=== PATIENT | female | born 1975 | race African-American/Black ===

== ENCOUNTER 2018-07-05 13:46 | Emergency (ER) | payer OTHER ==
[~2018-07-05] VITALS: Ht 175.3 cm; Wt 74.8 kg
[2018-07-05 14:19] LABS: ABSOLUTE EOSINOPHILS 0.1 thou/uL (0.0-0.7); ABSOLUTE LYMPHOCYTES 2.1 thou/uL (0.8-5.3); ABSOLUTE MONOCYTES 0.4 thou/uL (0.0-1.2); ABSOLUTE NEUTROPHILS 2.3 thou/uL (1.6-8.1); BASOPHILS 0.6 %; HEMATOCRIT 37.1 % (37.0-47.0); HEMOGLOBIN 12.2 gm/dL (12.0-15.0); LYMPHOCYTES 41.4 %; MCH 26.5 pg (26.0-34.0); MCHC 32.9 g/dL (28.0-37.0); MCV 80.6 fL (80.0-100.0); MONOCYTES 8.7 %; MPV 7.2 fl. (7.2-11.1); NUCLEATED RBCS 0 /100WBC; PLATELET COUNT* 270 thou/uL (150-400); POLYS 46.3 %; RDW-CV 13.1 % (10.5-14.5)
[2018-07-05 14:39] LABS: ANION GAP 8 mmol/L (7-16); BUN 11 mg/dL (7-18); CALCIUM 8.7 mg/dL (8.5-10.1); CHLORIDE 105 mmol/L (98-107); CO2 27 mmol/L (21-32); CREATININE 0.9 mg/dL (0.6-1.3); GLUCOSE 90 mg/dL (70-99); POTASSIUM 3.8 mmol/L (3.5-5.1); SODIUM 140 mmol/L (136-145); TROPONIN-I LEVEL <0.06 ng/mL (<0.06)
[2018-07-05 14:40] LABS: ALBUMIN 3.4 g/dL (3.4-5.0); ALKALINE PHOSPHATASE 40 U/L (46-116); LIPASE 120 U/L (73-393); MAGNESIUM 1.9 mg/dL (1.8-2.4); NT-PRO BRAIN NAT PEPTIDE 113 pg/mL (<300); SGOT 17 U/L (15-37); SGPT 21 U/L (30-65); TOTAL BILIRUBIN 0.3 mg/dL (<0.1-1.0); TOTAL PROTEIN 7.4 g/dL (6.4-8.2)
--- NOTE | 2018-07-05 15:18 | EKG ---
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: ALIREZA : 1975 Requested By: Antony Wei Order Number: [id number] MD: Se Rivera Measurements Intervals [place] Rate: 86 P: 77 DC: 202 QRS: 56 QRSD: 83 T: 6 QT: 362 QTc: 433 Interpretive Statements Sinus rhythm Borderline prolonged DC interval Left atrial enlargement Baseline wander in lead(s) V2,V3,V4,V5,V6 No previous ECG available for comparison Electronically Signed On 07-05-2018 15:18:13 CDT by Se Rivera [email or web address] <ELECTRONICALLY SIGNED> By: Se Rivera MD, [facility] 07/05/18 1518 1354 1354 Se Rivera MD, FACC /EPI
[2018-07-05] MEDS ORDERED: HYDROCODONE-AP1 EAC6 PO (16:39)
[2018-07-05 16:50] VITALS: BP 133/86
--- NOTE | 2018-07-06 11:35 | EKG ---
[place] [address] ELECTROCARDIOGRAM REPORT Name: WALLACEELAINE Room: 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
== END 2018-07-05 16:51 | disposition home or self-care (01) ==
LOC: M.ERS 13:46
PROVIDERS: Emergency Medicine Emergency Medical Services
DX: R07.89 Other chest pain (principal); Z90.49 Acquired absence of other specified parts of digestive tract; Z90.710 Acquired absence of both cervix and uterus

== ENCOUNTER → 2018-09-02 | Outpatient (CLI) | payer OTHER ==
[~2018-09-02] MED LIST: AMITRIPTYLINE H10 M3 PO; HYDROCODONE-AP1 EAC6 PO; MEDROLDOSEPACK PO; MOBIC15 MG PO; TYLENOL325 MG PO
--- NOTE | ~2018-09-02 | PAINCON ---
[facility] [address] [place] [address] PAIN MANAGEMENT CONSULTATION Name: ELAINE WALLACE Room: [facility].#: [id number] Admission: 09/02/18 Attend Phys: Reynaldo Wilde MD Discharge: Date of : 77 Report #: [id number] THIS REPORT FOR: //name// CC: Reynaldo Valadez MD DATE OF SERVICE: 09/02/2018 CHIEF COMPLAINT: Neck pain with pain down in my arm. HISTORY OF PRESENT ILLNESS: The patient is a 42-year-old female who has been referred to the pain clinic for evaluation. She has been experiencing pain since 06/2016, the pain has worsened. It involves her neck with pain radiating down into the right arm. She notes that when she is driving and with her arm extended, pain is worsened. Pain is increased when working with her computer with her arm extended. Notes pressure in her neck and in the upper back area. Has had some stabbing pain in the neck area. Has used ibuprofen as well as Tylenol if pain persists. Pain has worsened since June of this year. ALLERGIES: No known drug allergies. CURRENT MEDICATIONS: Ibuprofen 200 mg p.r.n., Tylenol 500 mg p.r.n. PAST MEDICAL HISTORY: Generally good health. D and C. PAST SURGICAL HISTORY: Cholecystectomy 09/2007, partial hysterectomy. 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 She is working at this juncture. REVIEW OF SYSTEMS: Generally good health, decreased appetite, wears glasses, blurred vision, otherwise unremarkable. LABORATORY DATA: MRI of the cervical spine dated 07/27/2018 reveals: 1. Axial images at C2/C3 and C3/C4 do not demonstrate central spinal stenosis or neural foraminal narrowing. 2. C4-C5, there is a focal central disk osteophyte complex, which deforms the anterior thecal sac and narrows AP diameter to 6 mm consistent with severe central spinal stenosis. 3. C5/C6, there is mild generalized disk bulge, which flattens the AP diameter of the thecal sac to 7 mm consistent with moderate central spinal stenosis. 4. C6/C7 and C7/T1, No central canal stenosis or neural foraminal narrowing. 5. T1/T2, there is a focal central disk osteophyte complex, which narrows the AP diameter to 8 mm consistent with [id number] [place] [address] PAIN MANAGEMENT CONSULTATION Name: ELAINE WALLACE Michelle Room: [facility]#: [id number] Admission: 09/02/18 Attend Phys: Reynaldo Wilde MD Discharge: Date of : 77 Report #: [id number] PAIN CLINIC ASSESSMENT/PQRS: 1. Osteoarthritis. The patient has arthritic changes in her neck, per the MRI findings. 2. Arthritis. The patient has not been treated for rheumatoid arthritis. 3. Height 5 feet 10 inches, weight 168 pounds, BMI is 24. 4. Vital signs: Blood pressure 141/95, heart rate 88, respiratory rate 16, room air saturation 100%, temperature 98.5. 5. Pain score 6/10. 6. Fall history. The patient has not fallen in the last 3 months. 7. Blood thinner. The patient is not on a blood thinning medication. 8. Hypertension. The patient is not being treated for hypertension. 9. Opioid therapy greater than 6 weeks. The patient is not receiving opioid medications on a regular basis. 10. Risk assessment tool, low for opioid use. 11. Functional assessment tool. 12. Recreational drug use. The patient denies use of recreational drugs. 13. Tobacco: The patient denies use of tobacco. 14. Alcohol: The patient denies frequent use of alcoholic beverages. PHYSICAL EXAMINATION: GENERAL: The patient is a well-developed, well-nourished black female, appears her stated age. She is alert and oriented x 3. Her affect is appropriate. Speech is fluent. HEENT: Normocephalic, atraumatic. Extraocular eye muscles intact. Sclerae nonicteric. Mucous membranes are moist. NECK: Without adenopathy or JVD. HEART: Regular rate. ABDOMEN: Nontender. Bowel sounds present. EXTREMITIES: Upper extremity, the patient has pain and discomfort in the right arm with pain that is radiating down into the right shoulder, forearm, and down into her fingers with numbness and tingling in the middle finger and index finger. Lower extremity muscle strength is judged to be 5/5 for the major muscle groups in the lower extremity. The patient without significant scoliosis, kyphosis or lordosis. Deep tendon reflexes are +1 at the knees bilaterally, trace at the ankles +1 at the biceps bilaterally. Muscle strength is judged to be 5/5 for the major muscle groups in the upper extremity. IMPRESSION: Cervical spinal stenosis with narrowing down to 6 mm at C4-C5 consistent with severe central spinal stenosis. RECOMMENDATIONS: We discussed treatment options with the patient. We reviewed the patient's MRI with her line by line. A model was used to indicate the area of probable pathology. We discussed the options. At this juncture, I think it would be reasonable to try a conservative approach. The patient will be given a Medrol Dosepak to take in the interim. Hopefully, she will find that this medication is helpful. We will also provide [place] [address] PAIN MANAGEMENT CONSULTATION Name: ELAINE WALLACE Room: [facility]#: [id number] Admission: 09/02/18 Attend Phys: Reynaldo Wilde MD Discharge: Date of : 77 Report #: [id number] Amitriptyline can be helpful in chronic pain situations. Oftentimes is helpful with the patient to have nerve pain such as cervical radiculopathy as well as can be employed can be helpful with enabling the patient to get a good night sleep. She will take the amitriptyline 10 mg 1 p.o. at bedtime, if after the first night. She still has pain and is not sleeping well. She will double the dose of amitriptyline to 2 tablets at bedtime. She will also continue with Meloxicam 15 mg 1 p.o. daily. We would follow up with the patient in the near future. She will also take the Medrol Dosepak as prescribed. We would like to thank you for letting us participate in her care. We hope she continues to improve. By: 1545 T: 05/1929N. Wander Wilde MD /PMT
== END ==
LOC: M.PC 11:50
DX: M47.812 Spondylosis without myelopathy or radiculopathy, cervical region (principal); M25.78 Osteophyte, vertebrae; M48.02 Spinal stenosis, cervical region; Z88.8 Allergy status to other drugs, medicaments and biological substances; Z90.49 Acquired absence of other specified parts of digestive tract; Z90.710 Acquired absence of both cervix and uterus; Z79.891 Long term (current) use of opiate analgesic

== ENCOUNTER → 2018-09-09 | Outpatient (CLI) | payer OTHER ==
--- NOTE | ~2018-09-09 | PAINCON ---
[address] [address] PAIN MANAGEMENT CONSULTATION Name: RODRIGOMOIZGeovanna Martinez Room: [facility] [place]#: [id number] Admission: 09/09/18 Attend Phys: Reynaldo Wilde MD Discharge: Date of : 77 Report #: [id number] THIS REPORT FOR: //name// CC: Reynaldo Valadez DATE OF SERVICE: 09/09/2018 CHIEF COMPLAINT: Pain in the right arm with numbness and tingling down in my fingers. HISTORY: The patient is a 42-year-old female who has been seen in the pain clinic because of cervical radiculopathy. She has a number of ____ lesions at C4-C5, it is rated as 6 mm, which is considered somewhat severe. She has returned today. She was given a Medrol Dosepak to take in the interim as well as Elavil and meloxicam. Her pain continues to be problematic. She rates it as a 6-7/10. She has been going to physical therapy. Notes that there is some numbness in her right arm. She feels pressure in her neck and in the upper back area. She has been experiencing stabbing pains in her neck. Rates her pain as a 6-7/10. She has not had any significant new findings since we saw her last. She has returned today with a desire to undergo a cervical epidural steroid injection with the hope that the pain would improve as a result of this treatment course. She has been going through physical therapy and wonders whether or not to go to physical therapy today. We will have her refrain from physical therapy tomorrow. ALLERGIES: No known drug allergies. CURRENT MEDICATIONS: Amitriptyline 10 mg at bedtime, meloxicam 15 mg daily. PAIN CLINIC ASSESSMENT/PQRS: 1. The patient has some arthritic changes in her neck with narrowing of the cervical area at C4-C5 to 6 mm, which is considered severe cervical stenosis. The patient is not being treated for rheumatoid arthritis. 2. Height 5 feet 10 inches, weight 172 pounds, BMI is 24.7. 3. Vital Signs: Blood pressure 132/97, heart rate 97, respiratory rate 16, room air saturation 94%, temperature 98.7. Pain intensity 6-7/10. 4. Fall history. The patient has not fallen in the last 3 months. 5. Blood thinner. The patient is not on a blood thinning medication. 6. Hypertension. The patient is not being treated for hypertension. 7. Opioids greater than 6 weeks. The patient is not on a regular opioid regimen. 8. Risk assessment tool, low for opioid use. 9. Functional assessment tool. 10. Recreational drug use. The patient denies use of recreational drugs. 11. Tobacco: The [place] [address] PAIN MANAGEMENT CONSULTATION Name: ELAINE WALLACE [id number] Admission: 09/09/18 Attend Phys: Reynaldo Wilde MD Discharge: Date of : 77 Report #: [id number] 12. Alcohol. The patient denies frequent use of alcoholic beverages. PHYSICAL EXAMINATION: GENERAL: The patient is a well-developed, well-nourished black female, appears her stated age. She is alert and oriented x 3. Her affect is appropriate. Speech is fluent. HEENT: Normocephalic, atraumatic. Extraocular eye muscles intact. Sclerae nonicteric. Mucous membranes are moist. NECK: Without adenopathy or JVD. The patient has some pain and discomfort radiating down the right shoulder, forearm with numbness in the index and middle finger. Perceive some weakness as a result of this. As note some increased pain with activities of daily living. HEART: Regular rate. S1, S2. LUNGS: Clear to auscultation. ABDOMEN: Nontender. Bowel sounds present. EXTREMITIES: Lower extremity muscle strength 5/5 for the major muscle groups in the lower extremity. The patient without scoliosis, kyphosis or lordosis. IMPRESSION: Cervical radiculopathy. RECOMMENDATIONS: We discussed treatment options with the patient. The patient was given Medrol Dosepak, meloxicam, Elavil to take in the interim. She still feels that her pain is problematic. Rates it as a 6-7. Working with a computer, causes worsening of her pain. Note some increased pain while driving with her arm extended. Still unable to engage in activities of daily living because of this problem. We discussed a risk and benefits of a cervical epidural steroid injection they could include but are not limited to infection, worsening of pain, no improvement in pain, bleeding, headache, nerve damage. The patient elects to proceed. PROCEDURE NOTE: The patient was taken to the procedure area. She was then assisted in getting on the examination table. A pillow was placed under her shoulders to position and improve her cervical positioning. Fluoroscopy used the anterior, posterior as well as lateral viewing were implemented. A 17-gauge Tuohy with loss of resistance technique was used to gain access to the epidural space at the C7/T1 interspace. A 0.25% bupivacaine had been infiltrated to numb the area with a 25-gauge needle. A 17-gauge Tuohy using a midline approach was undertaken. A direction for the right paramedian area was undertaken. Aspiration was negative. A total of 120 mg triamcinolone was injected. The patient tolerated the procedure well. She remained in the Pain Clinic for an appropriate amount of time. She will follow up in [place] [address] PAIN MANAGEMENT CONSULTATION Name: WALLACEELAINE Room: [facility]#: [id number] Admission: 09/09/18 Attend Phys: Reynaldo Wilde MD Discharge: Date of : 77 Report #: [id number] would like to thank you for letting us participate in her care. We hope she continues to improve. By: 1556 [id number]. Wander Wilde MD /CHICHI
== END | disposition home or self-care (01) ==
LOC: M.PC 10:11
DX: M54.12 Radiculopathy, cervical region (principal); G89.29 Other chronic pain; Z79.899 Other long term (current) drug therapy

== ENCOUNTER → 2018-10-19 | Outpatient (CLI) | payer OTHER ==
--- NOTE | ~2018-10-19 | PAINCON ---
[address] [address] PAIN MANAGEMENT CONSULTATION Name: RODRIGOMOIZGeovanna Martinez Room: [facility] [place]#: [id number] Admission: 10/19/18 Attend Phys: Reynaldo Wilde MD Discharge: Date of : 77 Report #: [id number] THIS REPORT FOR: //name// CC: Reynaldo Valadez DATE OF SERVICE: 10/19/2018 CHIEF COMPLAINT: The pain has improved since the injection as well as continuing physical therapy. HISTORY: The patient is a 42-year-old female who has been seen in the pain clinic because of cervical radiculopathy. She feels she is about 80% improved after the reinjection as well as with her current medication regimen. She continues to do stretching exercises provided by the physical therapist. She feels that working on her workstation at home to make it more ergonomic will be quite beneficial. She rates her pain as a 2/10 at this point. She has had no complication from the procedure. No neurological complaints. She has just finished a 6-month course of physical therapy. Feels that this has made things much better. She rates her pain as above as a 2/10 and 80% improved. She would like to proceed with another epidural steroid injection to help further improve her level of comfort. ALLERGIES: No known drug allergies. CURRENT MEDICATIONS: Amitriptyline 10 mg at bedtime, meloxicam 15 mg daily. PAIN CLINIC ASSESSMENT AND PQRS: 1. The patient has some arthritic changes in her neck with some narrowing of the cervical areas at C4/C5 to 6 mm, which is consistent with severe cervical stenosis. 2. The patient is not being treated for rheumatoid arthritis. 3. Height 5 feet 10 inches, weight 171 pounds, BMI is 24. 4. VITAL SIGNS: Blood pressure 136/90, heart rate 104, respiratory rate is 16, room air saturation is 97%, temperature 98.6. 5. Pain intensity 06/06. 6. Fall history: The patient has not fallen in the last 3 months. 7. Blood thinner. The patient is not on a blood thinning medication. 8. Hypertension. The patient is not being treated for hypertension. 9. Opioids greater than 6 weeks. The patient is not on a regular opioid regimen. 10. Risk assessment tool over opioid use. 11. Functional assessment tool. 12. Recreational drug use. The patient denies use of recreational drugs. 13. Tobacco: The patient denies use of tobacco. 14. Alcohol: The patient denies [place] [address] PAIN MANAGEMENT CONSULTATION Name: ELAINE WALLACE Room: [facility]#: [id number] Admission: 10/19/18 Attend Phys: Reynaldo Wilde MD Discharge: Date of : 77 Report #: [id number] PHYSICAL EXAMINATION: GENERAL: The patient is a well-developed, well-nourished black female. Appears her stated age. She is alert and oriented x 3. Her affect is appropriate. Speech is fluent. HEENT: Normocephalic, atraumatic. Extraocular eye muscles intact. Sclerae nonicteric. Mucous membranes are moist. NECK: Without adenopathy or JVD. The patient has some pain and discomfort with pain radiating down to the right shoulder involving the forearm with some numbness and tingling in the area of the index finger. Has some perception of weakness in this area. HEART: Regular rate. S1, S2. LUNGS: Clear to auscultation without rhonchi or rales. ABDOMEN: Nontender. Bowel sounds present. EXTREMITIES: Lower extremity muscle strength is judged to be 5/5 for the major muscle groups in the lower extremity. The patient is without scoliosis, kyphosis or lordosis. IMPRESSION: Cervical radiculopathy improved, but improved after the last epidural steroid injection. RECOMMENDATION: The patient would like to proceed with another injection. She continues with her activities. She rates her pain as about 2/10. This is about 80% improved. We again discussed the risks and benefits of the procedure, which could include but are not limited to infection, worsening of pain, no improvement in pain, muscle weakness, paralysis and the patient elects to proceed. PROCEDURE NOTE: The patient was taken to the procedure area. She was then assisted in getting on the examination table. Her back was sterilely prepped in the neck area. Fluoroscopy using anterior, posterior as well as lateral viewing were implemented. The patient's neck was infiltrated with 0.25% bupivacaine at the C7-T1 interspace. A 17-gauge Tuohy with loss of resistance technique was used to gain access to the epidural space at the C7-T1 interspace. Aspiration was negative. A total of 120 mg of triamcinolone was injected. The patient tolerated the procedure well. Pain was 0 at the time of discharge. She will follow up in the future as needed. We would like to thank you for letting us participate in her care. We hope she continues to improve. By: [id number]. Wander Wilde MD /CHICHI
== END | disposition home or self-care (01) ==
LOC: M.PC 05:43
DX: M54.12 Radiculopathy, cervical region (principal); G89.29 Other chronic pain; Z98.890 Other specified postprocedural states